=== PATIENT | male | born 1975 | race Caucasian/White ===

== ENCOUNTER → 2024-12-11 | Outpatient (CLI) | payer OTHER ==
--- NOTE | 2024-12-11 15:15 | HMCSR ---
APPROVED REPORT EXAM: Two-dimensional and M-mode echocardiogram with Doppler and color Doppler. INDICATION ICD: Z98.89 2D Dimensions RVDd3.1 cmLVEF(%)62.1 (>50%)LVED Vol(simp.)85.0 mL IVSd1.3 (0.7-1.1cm)FS(%)33 %LVES Vol(simp.)30.0 mL LVDd3.9 (3.8-5.6cm)LA (2D)3.9 (1.6-4.0cm)LVEF(%, simp.)65 % PWd1.0 (0.7-1.1cm)Ao Root(2D)3.8 (2.0-3.7cm)LA ESV INDEX (BP)22.59 mL/m2 IVSs1.4 cmLVOT diam2.6 (1.8-2.4cm) LVDs2.6 (2.5-4.0cm) PWs1.1 cm M-Mode Dimensions EPSS0.9 cm LA (MM)4.6 (1.6-4.0cm) Ao Root(MM)3.4 (2.0-3.7cm) Aortic Valve AoV Vmax1.9 m/Jonathan Peak GR14.1 mmHgLVOT Vmax1.5 m/s AoV VTI0.3 mAo Mean GR9.2 mmHgLVOT VTI0.26 m CAM (VMAX)4.17 cm2AVA (VTI) 4.2 cm2 Mitral Valve MV E Vmax87.7 cm/sDECEL Time99 ms MV A Ezdx514.8 cm/sP 1/2 T22 ms E/A ratio0.7MVA (PHT)10.0 cm2 TDI E/E' Qrvccm91.7E/E' Gnnoswe07.6 Medial E' Peak V8.21 cm/sLateral E' Peak V7.58 cm/s Pulmonary Valve PV Vmax1.2 m/s PV Peak GR5.9 mmHg Tricuspid Valve TR Vmax1.8 m/sRAP (EST) 3 itIdDOZG85.5 mmHg TR Peak GR14.5 mmHg Left Ventricle The left ventricle is normal size. There is normal LV segmental wall motion. There is normal left anand tricular wall thickness. LVEF is 60-65%. E/A flow reversal noted. Right Ventricle The right ventricle is normal size. The right ventricular systolic function is normal. Atria The left atrium size is normal. The right atrium size is normal. Aortic Valve The aortic valve is normal in structure. No aortic regurgitation is present. There is no aortic valvu lar stenosis. Mitral Valve The mitral valve is normal in structure. There is no evidence of significant mitral regurgitation. Th ere is no mitral valve stenosis. Tricuspid Valve The tricuspid valve is normal in structure. There is no tricuspid valve regurgitation noted. Pulmonic Valve The pulmonary valve is normal in structure. There is no pulmonic valvular regurgitation. Great Vessels The aortic root is normal in size. IVC is not well visualized. Pericardium There is small posterior pericardial effusion. There are no echocardiographic indications for cardiac tamponade. Other Information Quality : Adequate Conclusion LVEF is 60-65%. There is normal LV segmental wall motion. There is small posterior pericardial effusion. There are no echocardiographic indications for cardiac tamponade.
== END | disposition home or self-care (01) ==
LOC: RAH 12:37
PROVIDERS: ATTEND Internal Medicine Critical Care Medicine
DX: Z01.810 Encounter for preprocedural cardiovascular examination (principal); I31.39 Other pericardial effusion (noninflammatory); Z98.890 Other specified postprocedural states
CPT/HCPCS: 93306